=== PATIENT | female | born 1975 ===

== ENCOUNTER 2018-04-25 20:45 | Inpatient (IN) | payer MEDICARE, MEDICAID ==
[2018-04-25] MEDS ORDERED: Charcoal 50 GM/Sorbitol* 50 GM/240 ML BTL ONE (21:00)
[2018-04-25] MEDS ORDERED: NS 0.9% 1000 ML** 1,000 ML IV ONE (21:01)
[2018-04-25] MEDS ORDERED: Charcoal ACTIVATED* 25 GM/120 ML BTL ONE ×2 (21:01→21:03)
[2018-04-25] MEDS ORDERED: Charcoal ACTIVATED* 25 GM/120 ML BTL PO ONE (21:01)
--- NOTE | 2018-04-25 21:08 | ED ---
Substance Abuse/Use - HPI Summary HPI Summary: This patient is a 42 year old F brought in by ambulance to ED with a chief complaint of overdose since 1899. She took at least 20 wellbutrin and 20 tizanidine. Patient told her mother who called the ambulance. Patient reports she feels alright in the ER. Patient weighs 240lbs. The patient rates the pain 0 /10 in severity. Symptoms aggravated by nothing. Symptoms alleviated by nothing. Patient reports self-induced vomiting x4 at 1999. Patient denies BM since OD. PMHx of OD. - History Of Current Complaint Stated Complaint: 941/MHE PER EMS Hx Obtained From: Patient Onset/Duration of Drug/ETOH Abuse: Hours - at 1899 today Ingestion History: Type/Name Of Drug - 20 abiraterone and 20 tizanidine, Amount Ingested, Approximate Time Of Ingestion - 1899 Overdose Characteristics: Oral Timing Of Abuse: Binge Use Severity Currently: None Aggravating Factor(s): Nothing Alleviating Factor(s): Nothing Associated Signs And Symptoms: Vomiting - self-induced, Other: - denies BM since OD - Allergies/Home Medications Allergies/Adverse Reactions: Allergies Allergy/AdvReac Type Severity Reaction Status Date / Time No Known Allergies Allergy Verified 10/30/12 11:34 PMH/Surg Hx/FS Hx/Imm Hx Cardiovascular History: Denies: Hx Pacemaker/ICD Sensory History: Denies: Hx Hearing Aid Psychiatric History: Denies: Hx Panic Disorder - Surgical History Surgery Procedure, Year, and Place: TUBAL 2002 - Family History Known Family History: Positive: Other Family History: Mother - esophageal CA - Social History Alcohol Use: None Substance Use Type: Reports: None Hx Tobacco Use: No Smoking Status (MU): Never Smoked Tobacco Review of Systems Positive: Vomiting - self-induced vomiting x4 at 1999, Other - denies BM since OD Positive: Other - OD All Other Systems Reviewed And Are Negative: Yes Physical Exam - Summary Physical Exam Summary: VITAL SIGNS: Reviewed. GENERAL: Patient is a well-developed and nourished FEMALE who is lying comfortable in the stretcher. Patient is not in any acute respiratory distress. HEAD AND FACE: No signs of trauma. No ecchymosis, hematomas or skull depressions. No sinus tenderness. EYES: PERRLA, EOMI x 2, No injected conjunctiva, no nystagmus. EARS: Hearing grossly intact. Ear canals and tympanic membranes are within normal limits. MOUTH: Oropharynx within normal limits. NECK: Supple, trachea is midline, no adenopathy, no JVD, no carotid bruit, no c- spine tenderness, neck with full ROM. CHEST: Symmetric, no tenderness at palpation LUNGS: Clear to auscultation bilaterally. No wheezing or crackles. CVS: Regular rate and rhythm, S1 and S2 present, no murmurs or gallops appreciated. ABDOMEN: Soft, non-tender. No signs of distention. No rebound no guarding, and no masses palpated. Bowel sounds are normal. EXTREMITIES: FROM in all major joints, no edema, no cyanosis or clubbing. NEURO: Alert and oriented x 3. No acute neurological deficits. Speech is normal and follows commands. SKIN: Dry and warm Triage Information Reviewed: Yes Vital Signs On Initial Exam: Initial Vitals Temp Pulse Resp BP Pulse Ox 99.7 F 77 12 121/81 97 04/25/18 20:57 04/25/18 20:57 04/25/18 20:57 04/25/18 20:57 04/25/18 20:57 Vital Signs Reviewed: Yes Diagnostics - Laboratory Result Diagrams: 04/25/18 21:29 04/25/18 21:29 Lab Statement: Any lab studies that have been ordered have been reviewed, and results considered in the medical decision making process. - Radiology CXR Radiology Interpretation Completed By: ED Physician Summary of Radiographic Findings: Negative CXR. Pending radiologist official report. - EKG 2111 Cardiac Rate: NL - 79 BPM EKG Rhythm: Sinus Rhythm Summary of EKG Findings: Normal axis. Normal interval. No ischemic changes. Re-Evaluation - Re-Evaluation First Eval Re-Evaluation Time: 22:46 Comment: Patient's BP is low. Second Eval Re-Evaluation Time: 00:02 Comment: Patint's BP is on the lower side. However, the patient's mental status is normal. She is alert and awake. She says her baseline BP is at 110, 115 systolic. The patient also says she felt somewhat dizzy when she sat up in the bed. She will be getting 1L of IV normal saline. Course/Dx - Course Assessment/Plan: This patient is a 42 year old F brought in by ambulance to ED with a chief complaint of overdose since 1900. In the ED course, the patient was given fluids and charcoal. EKG done at 2110 reveals NSR at 79 BPM and normal axis, normal interval, and no ischemic changes. CXR, per ED physician, is negative. Consulted Dr. Carbone at 2235 who accepts the patient for admission with a dx of overdose. Patient will be admitted and she understands and agrees with this plan. - Diagnoses Differential Diagnosis/HQI/PQRI: Positive: Other - overdose Provider Diagnoses: Overdose - Physician Notifications Discussed Care Of Patient With: Sarah Carbone Time Discussed With Above Provider: 22:35 Instructed by Provider To: Admit As Inpatient Discharge - Sign-Out/Discharge Documenting (check all that apply): Patient Departure - admit Patient Received Moderate/Deep Sedation with Procedure: No - Discharge Plan Condition: Stable Disposition: ADMITTED TO [facility] - Attestation Statements Document Initiated by Scribe: Yes Documenting Scribe: Naresh Han Provider For Whom Scribe is Documenting (Include Credential): Holly Thomas MD Scribe Attestation: I, Naresh Han, scribed for Holly Thomas MD on 04/26/18 at 0111. Status of Scribe Document: Ready
[2018-04-25 21:42] LABS: Hematocrit 31 % (33-41); Hemoglobin 9.5 g/dL (12.0-16.0); Mean Corpuscular HGB Conc 31 g/dL (31-36); Mean Corpuscular Hemoglobin 21 pg (27-31); Mean Corpuscular Volume 67 fL (80-97); Platelet Count 398 10^3/uL (150-450); Red Blood Count 4.53 10^6 /uL (3.70-4.87); Red Cell Distribution Width 17 % (10.5-15); White Blood Count 7.7 10^3/uL (3.5-10.8)
[2018-04-25 21:56] LABS: ABS Basophils 0.1 10^3/ul (0-0.2); ABS Eosinophils 0.1 10^3/ul (0-0.6); ABS Lymphocytes 2.5 10^3/ul (1.0-4.8); ABS Monocytes 0.5 10^3/ul (0-0.8); ABS Neutrophils 4.5 10^3/ul (1.5-7.7); ABS Nucleated RBC 0 10^3/ul; ALT 9 U/L (7-52); AST 14 U/L (13-39); Albumin 3.9 g/dL (3.2-5.2); Albumin/Globulin Ratio 1.4 (1-3); Alkaline Phosphatase 59 U/L (34-104); Anion Gap 8 mmol/L (2-11); BUN/Creatinine Ratio 11.1 (8-20); Blood Urea Nitrogen 10 mg/dL (6-24); CO2 Carbon Dioxide 19 mmol/L (22-32); Calcium 8.6 mg/dL (8.6-10.3); Chloride 113 mmol/L (101-111); Creatine Kinase 74 U/L (10-223); EGFR African American 82.7 (>60); EGFR Non-African American 68.3 (>60); Eosinophil % 1.5 %; Globulin 2.8 g/dL (2-4); Glucose 139 mg/dL (70-100); Lymphocyte % 32.3 %; Nucleated Red Blood Cells % 0.1; Potassium 4.5 mmol/L (3.5-5.0); Sodium 140 mmol/L (135-145); Total Protein 6.7 g/dL (6.4-8.9)
[2018-04-25 22:02] LABS: HCG Pregnancy < 0.60 mIU/mL
[2018-04-25 22:18] LABS: Acetaminophen < 15 mcg/mL; Alcohol 119 mg/dL (<10); Salicylate < 2.50 mg/dL (<30)
[2018-04-25] MEDS ORDERED: NS 0.9% 1000 ML** 2,000 ML IV ONE (22:24)
[2018-04-25 23:46] LABS: Urine Appearance Clear; Urine Bilirubin Negative (Negative); Urine Blood Negative (Negative); Urine Color Yellow; Urine Glucose Negative (Negative); Urine Ketones Negative (Negative); Urine Nitrite Negative (Negative); Urine Protein Negative (Negative); Urine Specific Gravity 1.017 (1.010-1.030); Urine Urobilinogen Negative (Negative)
[2018-04-26] MEDS ORDERED: NS 0.9% 1000 ML** 1,000 ML IV.FLUID IV ONE (00:05)
[2018-04-26 00:10] LABS: Barbiturates Urine Screen None Detected (None Detect); Benzodiazepine Urine Screen None Detected (None Detect); Urine Cannabinoids Screen None Detected (None Detect)
[2018-04-26] MEDS ORDERED: Senna TAB PO PRN (00:16)
[2018-04-26] MEDS ORDERED: Al Hydrox/Mg Hydrox/Simet LIQ* 30 ML UDC PO PRN (00:16)
[2018-04-26] MEDS ORDERED: Docusate CAP* 100 MG PO PRN (00:16)
[2018-04-26] MEDS ORDERED: Ondansetron INJ* 2 MG/ML VIAL IV PRN (00:16)
[2018-04-26] MEDS: NS 0.9% 1000 ML** 1,000 ML IV SCH ×4 (00:30→20:29)
[2018-04-26 00:34] LABS: % Iron Saturation 4 % (15-55); Iron 21 ug/dL (50-212); Total Iron Binding Capacity 575 mcg/dL (250-450); Transferrin 411 mg/dL (203-362)
[2018-04-26 00:48] LABS: TSH (Thyroid Stimulating Horm) 2.24 mcIU/mL (0.34-5.60)
[2018-04-26 00:54] LABS: Ferritin 3.6 ng/mL (11-307)
--- NOTE | 2018-04-26 02:28 | HP ---
CC: Dr. Resendiz * HISTORY AND PHYSICAL: DATE OF ADMISSION: 04/26/18 TIME OF EVALUATION: 0000 PRIMARY CARE PHYSICIAN: Dr. Resendiz. CHIEF COMPLAINT: Overdose. HISTORY OF PRESENT ILLNESS: This is a 42-year-old female with a past medical history of depression and suicide attempt in the past who presents to the emergency room after having a suicide attempt. Patient states the manager retail sales are coming at 9:30 tomorrow morning to evict her and her 2 sons. She attempted to end her life by taking approximately 20 tabs of Benadryl, 10 tabs of Tylenol PM , 20 tabs of Wellbutrin XL, and 25 tablets of tizanidine. Patient was given charcoal in the emergency room, poison control was contacted, and they recommended 24-hour observation on telemetry for monitoring of serotonin syndrome and anticholinergic toxicity. In the emergency room, as mentioned, patient received charcoal, 4 L of fluid, and was referred to the hospitalist service for further evaluation. Patient states she feels very tired. She denies any chest pain or shortness of breath, no confusion, no abdominal pain, no nausea; vomiting; or diarrhea. She states she attempted suicide in the past by taking sleeping pills. Her sons were at home at the time, but were not aware of her intent. She also drank 6 beers. No drugs. Her [id number] and niece were the ones who discovered what she was doing and called EMS. PAST MEDICAL HISTORY: 1. History of suicide attempt when she was 18 years of age with an overdose of sleeping pills. 2. History of depression. 3. History of iron deficiency anemia. 4. Menorrhagia. MEDICATIONS: Wellbutrin XL 150 mg p.o. daily. ALLERGIES: No known drug allergies. FAMILY HISTORY: Her mother is dying from esophageal cancer. Father's family history is unknown. Father's history is unknown. SOCIAL HISTORY: Patient lives at home with her sons who are aged 21 and 15. She states the 15-year-old is at her mother's house currently. As mentioned, social situation where she is getting evicted because she cannot pay her rent. No tobacco use. Socially drinks. Her healthcare proxy is her mother. CODE STATUS: Full code. REVIEW OF SYSTEMS: A 14-point review of systems as mentioned in the HPI; otherwise, negative. PHYSICAL EXAMINATION GENERAL: In no acute distress, pale appearing. VITAL SIGNS: Temperature is 97.9, pulse rate 74, respiratory rate is 16, oxygen saturation 97% on 2 L, blood pressure 84/55. HEENT: Head: Normocephalic. Pupils are equal and reactive. Pallor of conjunctivae. Conjunctivae mildly injected. Oropharynx: Black oropharynx from the charcoal. NECK: Supple. No lymphadenopathy. RESPIRATORY: Clear to auscultation. No wheezing, rhonchi, or rales. CARDIAC: Regular rate and rhythm. Soft systolic murmur. ABDOMEN: Soft, nontender, nondistended. Positive bowel sounds. EXTREMITIES: No clubbing, cyanosis, or edema; +2 DPs. NEUROLOGICAL: Alert and oriented x3. No gross focal neurologic deficits. Patient is alert and oriented. DIAGNOSTIC STUDIES/LAB DATA: Laboratory Data: White count 7.7, hemoglobin 9.5 , hematocrit 31, platelets 398. Sodium 140, potassium 4.5, chloride 113, bicarb 19, BUN 10, creatinine 0.9, glucose 139. Lactic acid is 2. Beta hCG is negative. UA is unremarkable. Toxicology is alcohol level of 119; otherwise, it is negative. EKG: Normal sinus rhythm with QTc of 452. ASSESSMENT AND PLAN: This is a 42-year-old female with a past medical history of depression who is, unfortunately, getting evicted from her home with her 2 young sons and attempted suicide attempt with overdose of multiple medications and alcohol. 1. Overdose with toxic ingestion and suicide attempt. Assessment: Patient is status post charcoal. Poison control was contacted. They need to be contacted again as they were not aware of the additional Benadryl tabs. Due to her persistent hypotension, we will admit her to the ICU, continue her on maintenance IV fluids, bolus her as needed, repeat her labs, keep her on the monitor. We will give her benzodiazepine as needed. She does not appear to need this at this time. We will monitor for serotonin syndrome and any anticholinergic toxicity. We will consult social work and psychiatry and keep her on a one-to-one observation. 2. Iron deficiency anemia. She has a history of iron deficiency with heavy menses. We will check on iron studies and start her on iron supplement. 3. FEN. Allow for regular diet with IV fluids. 4. DVT prophylaxis. Patient scores moderate risk. We will place her on heparin subcu t.i.d. 5. Code status. Full code. PATIENT TIME: Greater than 50 minutes was spent doing the history and physical , more than half the time was spent in direct patient contact and critical care time. [id number]/CPS #: [id number] MTDD
[2018-04-26] MEDS: Heparin VIAL(*) 5000 UNITS/ML VIAL (FIVE THOUSAND) SUBCUT SCH ×3 (06:14→22:07)
[2018-04-26] MEDS: Ferrous Sulfate TAB* 325 MG PO SCH (08:12)
--- NOTE | 2018-04-26 08:26 | PN ---
Subjective Date of Service: 04/26/18 Interval History: Pt is feeling well this AM. No further vomiting. No lightheadedness or dizziness with moving from bed to chair. She has been irritated by the masterson and is happy I told her it could be removed. She states as soon as she took the pills last night she immediately felt remorseful and tried to vomit them back up but couldn't. Objective Active Medications: Al Hydrox/Mg Hydrox/Simethicone (Maalox Plus*) 30 ml PO Q6H PRN PRN Reason: INDIGESTION Docusate Sodium (Colace Cap*) 100 mg PO BID PRN PRN Reason: CONSTIPATION Ferrous Sulfate (Ferrous Sulfate Tab*) 325 mg PO DAILY [facility] Last Admin: 04/26/18 08:12 Dose: 325 mg Heparin Sodium (Porcine) (Heparin Vial(*)) 5,000 units SUBCUT Q8HR [facility] Last Admin: 04/26/18 06:14 Dose: 5,000 units Sodium Chloride (Ns 0.9% 1000 Ml) 1,000 mls @ 150 mls/hr IV PER RATE [facility] Last Admin: 04/26/18 06:22 Dose: 150 mls/hr Ondansetron HCl (Zofran Inj*) 4 mg IV Q4H PRN PRN Reason: NAUSEA/VOMITING Senna (Senokot Tab*) 1 tab PO BID PRN PRN Reason: CONSTIPATION Vital Signs - 8 hr 04/26/18 04/26/18 04/26/18 00:28 00:43 00:59 Temperature 97.9 F 97.9 F 97.5 F Pulse Rate 74 70 71 Respiratory 16 16 18 Rate Blood Pressure 84/55 93/61 91/56 (mmHg) O2 Sat by Pulse 97 97 98 Oximetry 04/26/18 04/26/18 04/26/18 01:00 01:15 01:23 Temperature 97.5 F 97.9 F 97.7 F Pulse Rate 74 70 78 Respiratory 19 16 18 Rate Blood Pressure 93/61 97/67 (mmHg) O2 Sat by Pulse 98 97 92 Oximetry 04/26/18 04/26/18 04/26/18 01:24 01:30 01:41 Temperature 98.8 F 97.9 F Pulse Rate 7 72 Respiratory 19 22 18 Rate Blood Pressure 97/67 97/62 (mmHg) O2 Sat by Pulse 95 95 Oximetry 04/26/18 04/26/18 04/26/18 01:42 01:45 02:00 Temperature 98.2 F 98.2 F Pulse Rate 73 72 Respiratory 18 24 17 Rate Blood Pressure 97/64 84/60 (mmHg) O2 Sat by Pulse 96 95 Oximetry 04/26/18 04/26/18 04/26/18 02:01 02:15 02:30 Temperature 98.2 F 98.2 F 98.2 F Pulse Rate 71 89 73 Respiratory 17 16 18 Rate Blood Pressure 92/59 92/59 (mmHg) O2 Sat by Pulse 96 96 96 Oximetry 04/26/18 04/26/18 04/26/18 02:45 03:00 03:01 Temperature 98.4 F 98.4 F 98.4 F Pulse Rate 76 75 75 Respiratory 20 20 19 Rate Blood Pressure 91/58 94/59 (mmHg) O2 Sat by Pulse 96 97 95 Oximetry 04/26/18 04/26/18 04/26/18 03:15 03:30 03:45 Temperature 98.4 F 98.6 F 98.6 F Pulse Rate 74 76 Respiratory 18 18 15 Rate Blood Pressure 92/63 94/61 92/58 (mmHg) O2 Sat by Pulse 97 98 Oximetry 04/26/18 04/26/18 04/26/18 04:00 04:01 04:15 Temperature 98.4 F 98.4 F 98.2 F Pulse Rate 77 78 78 Respiratory 20 17 17 Rate Blood Pressure 88/58 86/54 (mmHg) O2 Sat by Pulse 98 99 99 Oximetry 04/26/18 04/26/18 04/26/18 04:30 04:46 04:56 Temperature 98.2 F 98.2 F Pulse Rate 76 82 Respiratory 16 25 20 Rate Blood Pressure 89/62 89/70 (mmHg) O2 Sat by Pulse 99 99 Oximetry 04/26/18 04/26/18 04/26/18 05:00 05:01 05:15 Temperature 98.4 F 98.4 F 98.6 F Pulse Rate 83 81 79 Respiratory 23 23 22 Rate Blood Pressure 102/64 97/67 (mmHg) O2 Sat by Pulse 98 98 97 Oximetry 04/26/18 04/26/18 04/26/18 05:30 05:45 06:00 Temperature 98.4 F 98.6 F 98.6 F Pulse Rate 81 78 85 Respiratory 21 19 21 Rate Blood Pressure 105/68 99/70 108/72 (mmHg) O2 Sat by Pulse 96 97 98 Oximetry 04/26/18 06:15 Temperature 98.6 F Pulse Rate 88 Respiratory 24 Rate Blood Pressure 108/68 (mmHg) O2 Sat by Pulse 98 Oximetry Oxygen Devices in Use Now: None Appearance: Middle aged female sitting up in a recliner chair, NAD Eyes: No Scleral Icterus Ears/Nose/Mouth/Throat: Mucous Membranes Moist Respiratory: Symmetrical Chest Expansion and Respiratory Effort, Clear to Auscultation Cardiovascular: NL Sounds; No Murmurs; No JVD, RRR, No Edema Abdominal: NL Sounds; No Tenderness; No Distention Extremities: No Clubbing, Cyanosis Skin: No Rash or Ulcers Neurological: Alert and Oriented x 3 Result Diagrams: 04/25/18 21:29 04/25/18 21:29 Microbiology and Other Data: Microbiology 04/26/18 01:00 Nasal Screen MRSA (PCR) - Final Nasal Mrsa Not Detected Assess/Plan/Problems-Billing Ms Burch is a 42 yo F who has a h/o depression and was being evicted from her home and spontaneously took an overdose of benadryl, tylenol PM, tizanidine and wellbutrin and was admitted to the ICU for mild hypotension in the setting of the overdose. - Patient Problems (1) Intentional overdose of drug in tablet form Current Visit: Yes Status: Acute Code(s): T50.902A - POISONING BY UNSP DRUG/ MEDS/BIOL SUBST, SELF-HARM, INIT SNOMED Code(s): 752208643 Comment: Veronica overdosed on several medications. She remains remorseful and states it was an impulsive overdose. She is no longer hypotensive and can be transferred to the medical floor. She will need to be monitored until this evening. Psychiatry consult pending. If she remains stable she would be ready for d/c to [facility]HU or home depending on the psychiatry consult. (2) Depression Current Visit: Yes Status: Acute Code(s): F32.9 - MAJOR DEPRESSIVE DISORDER , SINGLE EPISODE, UNSPECIFIED SNOMED Code(s): 89834896 Comment: Wellbutrin currently on hold given overdose. Await recommendations from psychiatry. (3) DVT prophylaxis Current Visit: Yes Status: Acute Code(s): IBN2365 - SNOMED Code(s): 096048162 Comment: SQ heparin (4) Full code status Current Visit: Yes Status: Acute Code(s): Z78.9 - OTHER SPECIFIED HEALTH STATUS SNOMED Code(s): 282950180
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
[2018-04-27] MEDS: NS 0.9% 1000 ML** 1,000 ML IV SCH (03:41)
[2018-04-27 03:54] VITALS: BP 132/66
[2018-04-27] MEDS: Heparin VIAL(*) 5000 UNITS/ML VIAL (FIVE THOUSAND) SUBCUT SCH (05:21)
[2018-04-27 06:16] LABS: ABS Basophils 0 10^3/ul (0-0.2); ABS Eosinophils 0.1 10^3/ul (0-0.6); ABS Lymphocytes 2.6 10^3/ul (1.0-4.8); ABS Monocytes 0.3 10^3/ul (0-0.8); ABS Neutrophils 4.7 10^3/ul (1.5-7.7); ABS Nucleated RBC 0 10^3/ul; Eosinophil % 1.4 %; Hematocrit 28 % (33-41); Hemoglobin 8.8 g/dL (12.0-16.0); Lymphocyte % 33.2 %; Mean Corpuscular HGB Conc 32 g/dL (31-36); Mean Corpuscular Hemoglobin 21 pg (27-31); Mean Corpuscular Volume 67 fL (80-97); Mean Platelet Volume 7.1 fL (7.4-10.4); Nucleated Red Blood Cells % 0; Platelet Count 279 10^3/uL (150-450); Red Blood Count 4.17 10^6 /uL (3.70-4.87); Red Cell Distribution Width 18 % (10.5-15); White Blood Count 7.7 10^3/uL (3.5-10.8)
[2018-04-27 06:48] LABS: BUN/Creatinine Ratio 5.7 (8-20); Calcium 8.1 mg/dL (8.6-10.3); EGFR African American 110.5 (>60); EGFR Non-African American 91.3 (>60); Magnesium 1.7 mg/dL (1.9-2.7); Potassium 3.3 mmol/L (3.5-5.0)
[2018-04-27] MEDS: Ferrous Sulfate TAB* 325 MG PO SCH (07:50)
[2018-04-27] MEDS ORDERED: BuPROPion XL* 300 MG TAB.XL PO SCH (09:00)
[2018-04-27] MEDS ORDERED: Acetaminophen TAB* 325 MG PO PRN (09:03)
[2018-04-27] MEDS ORDERED: Potassium Chlor TAB* 20 MEQ TAB.ER PO ONE (09:17)
--- NOTE | 2018-04-27 12:23 | DS ---
CC: Dr. Gita Jc * DATE OF ADMISSION: 04/26/2018. DATE OF DISCHARGE: 04/27/2018. PRIMARY CARE PHYSICIAN: Dr. Gita Jc. PRINCIPAL DIAGNOSIS: Polydrug overdose. SECONDARY DIAGNOSES: 1. Depression. 2. Iron deficiency anemia. DISCHARGE MEDICATIONS: 1. Wellbutrin 300 mg p.o. daily. 2. Ferrous Sulfate 325 mg p.o. daily. HOSPITAL COURSE: Ms. Burch is a 42-year-old female who has a history of depression who took an intentional overdose of approximately 20 tablets of Benadryl, 10 tablets of Tylenol PM, 20 tablets of Wellbutrin XL, and 25 tablets of Tizanidine. The patient states that she was being evicted from her house. She, prior to even that, was stressed and depressed because her mother is on hospice for esophageal cancer. The patient states that she panicked and grabbed the medications and swallowed them and immediately regretted it. She attempted to throw up at home, but was unsuccessful. 911 was called and she was brought to the emergency room. She received charcoal in the ER. The plan was to admit her to the hospital for 24 hour observation. At this point, the patient is medically stable. She has been up and ambulating without any difficulty. She has normal vital signs. The patient was seen in consultation by Dr. Saucedo from Psychiatry. He felt that the patient was not in imminent risk to harm herself. It was recommended to continue Wellbutrin XL, but increase the dose to 300 mg daily. This prescription has been sent to the patient's pharmacy of choice. The patient at this point is going to be referred to [facility] as she cannot be open by [facility]. It was not felt that she need involuntary treatment [facility] the [facility]. At this point, the patient is stable for discharge home to live with her daughter. On the day of discharge, the patient is awake, alert, and oriented. Sitting up in bed in no acute distress. Her cardiac exam reveals a normal S1, S2 with a regular rate and rhythm. Her lungs are clear. He abdomen is soft, nontender, nondistended. FOLLOW-UP CONCERNS: The patient is being discharged home today, 04/27/2018. ACTIVITY LEVEL: As tolerated. DIET: Regular. CONDITION ON DISCHARGE: Stable. TIME SPENT: Twenty-five minutes were spent discharging this patient. [id number]/[facility] #: [id number] BRINDA
== END 2018-04-27 11:00 | disposition home or self-care (01) | DRG 918 ==
LOC: ED 20:45 → ICU 04-26 00:16 → MEDTELE 04-26 08:15
PROVIDERS: ADMIT Pediatrics; ATTEND Hospitalist
DX: T45.0X2A Poisoning by antiallergic and antiemetic drugs, intentional self-harm, initial encounter (principal); F33.2 Major depressive disorder, recurrent severe without psychotic features; T39.1X2A Poisoning by 4-Aminophenol derivatives, intentional self-harm, initial encounter; T43.292A Poisoning by other antidepressants, intentional self-harm, initial encounter; T42.8X2A Poisoning by antiparkinsonism drugs and other central muscle-tone depressants, intentional self-harm, initial encounter; D50.9 Iron deficiency anemia, unspecified; M50.30 Other cervical disc degeneration, unspecified cervical region; E66.9 Obesity, unspecified; E66.3 Overweight; I95.9 Hypotension, unspecified; J45.909 Unspecified asthma, uncomplicated; G43.909 Migraine, unspecified, not intractable, without status migrainosus; Z98.51 Tubal ligation status; Z91.030 Bee allergy status; Z81.8 Family history of other mental and behavioral disorders; Z80.0 Family history of malignant neoplasm of digestive organs; Z72.89 Other problems related to lifestyle; Y92.009 Unspecified place in unspecified non-institutional (private) residence as the place of occurrence of the external cause; Z68.37 Body mass index [BMI] 37.0-37.9, adult
CPT/HCPCS: 36415; 71045; 80048; 80053; 80307; 80320; 80329; 81003; 82550; 82728; 83540; 83550; 83605; 83735; 84443; 84702; 85025; 87641; 93005; 99285; A9270-GY; G0480; J1644

== ENCOUNTER 2018-08-08 17:02 | Emergency (ER) | payer MEDICARE, MEDICAID ==
[2018-08-08 17:13] VITALS: BP 122/74
--- NOTE | 2018-08-08 17:22 | UC ---
UC General HPI - HPI Summary HPI Summary: pt is c/o a bite to the back of her L upper arm this am. she thinks it occured 2 days ago while staying with a friend because she had other bites as well but those are better. she took po benadryl once and applied topical benadryl without relief. + itch. no fever. - History of Current Complaint Chief Complaint: [place] Stated Complaint: BUG BITE Time Seen by Provider: 08/08/18 17:08 Hx Obtained From: Patient Hx Last Menstrual Period: 07/17/18 Pain Intensity: 4 - Allergy/Home Medications Allergies/Adverse Reactions: Allergies Allergy/AdvReac Type Severity Reaction Status Date / Time No Known Allergies Allergy Verified 08/08/18 17:08 PMH/Surg Hx/FS Hx/Imm Hx Previously Healthy: Yes Other History Of: Negative For: Anticoagulant Therapy - Surgical History Surgical History: Yes Surgery Procedure, Year, and Place: TUBAL 2002 - Family History Known Family History: Positive: Other Family History: Mother - esophageal CA - Social History Alcohol Use: Occasionally Substance Use Type: None Smoking Status (MU): Never Smoked Tobacco - Immunization History Most Recent Influenza Vaccination: 2017 Most Recent Pneumonia Vaccination: Pt unsure Review of Systems All Other Systems Reviewed And Are Negative: No Constitutional: Negative: Fever, Chills Skin: Positive: Rash Musculoskeletal: Negative: Arthralgia Physical Exam Triage Information Reviewed: Yes Appearance: Well-Appearing Vital Signs: Initial Vital Signs Temp 97.4 F 08/08/18 17:09 Pulse 89 08/08/18 17:09 Resp 16 08/08/18 17:09 BP 122/74 08/08/18 17:09 Pulse Ox 100 08/08/18 17:09 Vital Signs Reviewed: Yes Eyes: Positive: Conjunctiva Clear Neck: Positive: Supple Respiratory: Positive: No respiratory distress Cardiovascular: Positive: RRR Musculoskeletal: Positive: ROM Intact Neurological: Positive: Alert Psychological: Positive: Age Appropriate Behavior Skin Exam: Normal, Other - 5" raised wheel on dorsal L upper arm c/w insect bite /sting. No streaking, warmth or axillary/epitrochlear adenopathy. Course/Dx - Differential Dx - Multi-Symptom Differential Diagnoses: Other - no concern for infection. - Diagnoses Provider Diagnosis: Insect bite Discharge - Sign-Out/Discharge Documenting (check all that apply): Patient Departure All imaging exams completed and their final reports reviewed: No Studies - Discharge Plan Condition: Stable Disposition: HOME Prescriptions: predniSONE [Prednisone 20 MG TAB] 40 mg PO DAILY 5 Days #10 tablet Patient Education Materials: Insect Bite or Sting (ED) Referrals: YAEL Fernandez [Medical Doctor] - 5 Days Additional Instructions: take benadryl 50mg every 6 hours as needed for itch/rash - Billing Disposition and Condition Condition: STABLE Disposition: Home
== END 2018-08-08 17:33 | disposition home or self-care (01) ==
LOC: UCCORT 17:02
DX: S40.862A Insect bite (nonvenomous) of left upper arm, initial encounter (principal); W57.XXXA Bitten or stung by nonvenomous insect and other nonvenomous arthropods, initial encounter; Y93.9 Activity, unspecified; Y92.009 Unspecified place in unspecified non-institutional (private) residence as the place of occurrence of the external cause
CPT/HCPCS: 99212; G0463